=== PATIENT | female | born 1950 | race Caucasian/White ===

== ENCOUNTER → 2020-08-18 | Outpatient (CLI) | payer MEDICARE, OTHER ==
--- NOTE | 2020-08-18 15:02 | RAD ---
XR KNEE _3 VIEWS_LT History: Reason: FELL 07/30/20, LEFT KNEE PAIN AND SWELLING TO LEFT ANTERIOR KNEE / Spl. Instructions: / History: Technique: 3 views left knee Comparison: None. Findings: Normal alignment. Mild knee degenerative changes with patellar spurring. Small knee joint effusion. M ild anterior knee soft tissue spine. Impression: 1. No acute osseous abnormality. 2. Anterior knee soft tissue swelling. Electronically signed by: Froylan Lopez DO (08/18/2020 3:00 PM) [id number]
== END ==
LOC: LAB 14:25
DX: S89.92XA Unspecified injury of left lower leg, initial encounter (principal); M25.462 Effusion, left knee; M79.89 Other specified soft tissue disorders; X58.XXXA Exposure to other specified factors, initial encounter; Y93.89 Activity, other specified; Y92.89 Other specified places as the place of occurrence of the external cause; Y99.8 Other external cause status
CPT/HCPCS: 73562